=== PATIENT | female | born 1965 | race Caucasian/White ===

== ENCOUNTER 2018-07-18 12:10 | Emergency (ER) | payer SELFPAY ==
[~2018-07-18] VITALS: Ht 162.6 cm; Wt 60.0 kg
[2018-07-18] MEDS ORDERED: SODIUM CHLORIDE 0.9% 1,000 ML IV ONE (12:48)
[2018-07-18 14:25] LABS: BASOPHILS % 0.9 % (0.0-2.0); EOSINOPHILS % 3.4 % (0.0-5.0); HEMATOCRIT. 40.4 % (36.0-48.0); HEMOGLOBIN. 13.4 g/dL (12.0-16.0); LYMPHOCYTES % 42.9 % (20.0-50.0); MEAN CORPUSCULAR HEMOGLOBIN 26.8 pg (28.0-32.0); MEAN PLATELET VOLUME 9.2 fl (7.4-10.4); MONOCYTES % 7.8 % (2.0-8.0); PLATELET 283 x1000/uL (130-400); RED BLOOD CELL COUNT 4.99 mill/uL (4.2-5.4); RED CELL DISTRIBUTION WIDTH 14.2 % (11.6-14.6)
[2018-07-18 14:33] LABS: PROTHROMBIN TIME 9.7 sec (9.1-11.1)
[2018-07-18 14:36] LABS: CHLORIDE 107 mEq/L (98-107)
[2018-07-18 15:18] VITALS: BP 122/77
== END 2018-07-18 15:19 | disposition home or self-care (01) ==
LOC: ER 12:14 → EDBD 12:14 → ER 15:19
DX: R55 Syncope and collapse (principal); R07.89 Other chest pain; R42 Dizziness and giddiness; I10 Essential (primary) hypertension
CPT/HCPCS: 36415; 71045; 80053; 83690; 84484; 85025; 85610; 93005; 96360; 99284; J7030